=== PATIENT | female | born 1945 | race Caucasian/White ===

== ENCOUNTER 2016-05-11 11:49 | Emergency (ER) | payer MEDICARE, OTHER ==
[~2016-05-11] VITALS: Ht 167.6 cm; Wt 60.0 kg
[2016-05-11] MEDS ORDERED: morphine 4 MG/ML VIAL IV STA (12:08)
[2016-05-11] MEDS ORDERED: ONDANSETRON 4 MG INJ IV STA (12:08)
[2016-05-11 12:09] VITALS: Ht 167.6 cm; Wt 60.0 kg
--- NOTE | 2016-05-11 12:44 | RADRPT ---
PROCEDURE: XR Chest. CLINICAL INDICATION: Chest pain. TECHNIQUE: Single frontal view of the chest was obtained COMPARISON: No. FINDINGS: There are atherosclerotic calcifications in the aortic arch. There are degenerative osteophytes in the thoracic spine. The soft tissues are generous. The heart, pulmonary vasculature, lung hart an d pleural spaces are normal. IMPRESSION: 1. Atherosclerosis of the aortic arch. 2. Spondylosis of the thoracic spine. 3. No evidence of active cardiopulmonary disease. RPTAT:AAJJ Physician Jasmyne Date Time Electronically viewed and signed by Hardik Pacheco Physician on 05/11/2016 12:44 SULLY/
[2016-05-11 13:13] LABS: BASOPHILS % 0.5 % (0.0-2.0); EOSINOPHILS # 0.2 10^3/ul (0.0-0.5); HEMATOCRIT 37.8 % (37.0-47.0); HEMOGLOBIN 12.9 g/dl (12.0-16.0); LYMPHOCYTES # 2.4 10^3/ul (0.8-2.9); LYMPHOCYTES % 30.7 % (15.0-51.0); MEAN CORPUSCULAR HEMOGLOBIN 30.2 pg (29.0-33.0); MEAN CORPUSCULAR HGB CONC 34.1 g/dl (32.0-37.0); MEAN CORPUSCULAR VOLUME 88.7 fl (82.0-101.0); MEAN PLATELET VOLUME 11.6 fl (7.4-10.4); MONOCYTE # 0.5 10^3/ul (0.3-0.9); MONOCYTES % 6.8 % (0.0-11.0); NEUTROPHIL # 4.6 10^3/ul (1.6-7.5); PLATELET COUNT 196 10^3/UL (140-440); RED BLOOD COUNT 4.26 10^6/ul (4.20-5.40); RED CELL DISTRIBUTION WIDTH 13.3 % (11.5-14.5); UNCORRECTED WBC 7.8 10^3/ul (4.8-10.8); WHITE BLOOD COUNT 7.8 10^3/ul (4.8-10.8)
[2016-05-11 13:18] LABS: CONDITION 1
[2016-05-11 13:27] LABS: PARTIAL THROMBOPLASTIN TIME 24.7 Sec (25.0-35.0); PROTIME 13.2 Sec (12.2-14.2)
[2016-05-11 13:28] LABS: CHLORIDE 107 mmol/L (97-110); POTASSIUM 4.1 mmol/L (3.5-5.1); SODIUM 142 mmol/L (135-144)
[2016-05-11 13:30] LABS: ANION GAP 19 (8-16); ASPARTATE AMINO TRANSFERASE 17 IU/L (15-46); BILIRUBIN,INDIRECT 1.2 mg/dl (0-1.1); BILIRUBIN,TOTAL 1.2 mg/dl (0.2-1.3); CARBON DIOXIDE 20 mmol/L (21-31); CREATININE 0.81 mg/dl (0.44-1.00)
[2016-05-11 13:31] LABS: ALANINE AMINOTRANSFERASE 20 IU/L (13-69); ALBUMIN/GLOBULIN RATIO 1.33; ALKALINE PHOSPHATASE 159 IU/L (42-121); BLOOD UREA NITROGEN 16 mg/dl (7-20); CALCIUM 10.3 mg/dl (8.4-10.2); CREATINE KINASE 48 IU/L (23-200); GLUCOSE 95 mg/dl (70-220)
[2016-05-11 13:40] LABS: CK-MB 0.66 ng/ml (0.0-2.4)
[2016-05-11 13:44] LABS: TROPONIN-I < 0.012 ng/ml (0.00-0.12)
--- NOTE | 2016-05-11 13:44 | RADRPT ---
PROCEDURE: CT Chest without contrast. CLINICAL INDICATION: Severe left rib pain after ground level fall yesterday. TECHNIQUE: CT scan of the chest without contrast was performed on a multidetector high-resolution CT scanner. Coronal and sagittal reformatted images were obtained from the axial source images. The total exam CTDI equals 8.6 mGy and the total exam DLP equals 338.6 mGy-cm. One or more of the following dose reduction techniques were used: - Automated exposure control. - Adjustment of the mA and/or kV according to patient size. Use of iterative reconstruction technique. COMPARISON: Chest x-ray 05/11/2016. FINDINGS: There is a contusion over the The lungs are clear. No focal opacification, effusion, pneumothorax, edema, or nodules are seen. There is no pulmonary infiltrate. No mass lesion to suggest neoplasm i s identified. The central tracheobronchial tree is clear. The mediastinum is unremarkable without evidence for mass or lymphadenopathy. The vascular structur es of the mediastinum are normal in course and caliber. Atherosclerotic calcifications are present in the aortic arch. The heart size is normal without evidence for pericardial thickening or effusio n. The axillary regions, subpectoral regions, and supraclavicular regions are all unremarkable. The em rrounding chest wall is unremarkable. Imaging obtained through the upper abdomen reveals no acute a bnormality The surrounding osseous structures are remarkable for mild degenerative changes of the t horacic and upper lumbar spine. No osteolytic or osteoblastic lesion is detected. The liver is mildly enlarged. The spleen is unremarkable. No hepatic laceration or free intraperit linares fluid is identified. There is prominence of the upper pole calyces in the left kidney. The r ight kidney is unremarkable. The adrenal glands and pancreas are normal. There is no evidence 50 for a. The stomach is normal. The small bowel loops are normal. There is contrast in the colon. IMPRESSION: 1. There is no evidence of active cardiopulmonary disease in the chest. No rib fracture, pneumotho rax, hemothorax or pulmonary contusion is identified. 2. Mild hepatomegaly. 3. Otherwise, unremarkable CT scan of the chest. RPTAT:AAJJ Hardik Tara, Physician Date Time Electronically viewed and signed by Hardik Pacheco Physician on 05/11/2016 13:44 JM/
--- NOTE | 2016-05-11 14:09 | ERD ---
ER Documentation Chief Complaint Date/Time DATE: 05/11/16 TIME: 14:00 Chief Complaint BIB [facility] FOR EVAL OF RT RIB PAIN. S/P FALL LAST NIGHT. HPI This is a 70-year-old female with a known history of Parkinson's disease that was brought into the emergency department by EMS after she had a witnessed mechanical trip and fall yesterday at her assisted living facility. The patient states she normally ambulates with a walker but tripped and landed on her right side. She is complaining of pain on the bilateral rib cage most prominent on the right side. She states it hurts when she takes in a deep breath. She denies any pain of her lower extremities. She has had no fevers no shaking or chills. She states she did not hit her head or lose consciousness. She denies a headache or neck pain. She has no numbness or tingling of her upper or lower extremities. ROS All systems reviewed and are negative except as per history of present illness. Physical Exam Vitals Vital Signs Date Time Temp Pulse Resp B/P Pulse Ox O2 Delivery O2 Flow Rate FiO2 05/11/16 12:09 97.9 61 18 144/95 99 Physical Exam Constitutional:Well-developed. Well-nourished. HEENT:Normocephalic. Atraumatic.Pupils were equal round reactive to light. Moist mucous membranes.No tonsillar exudates. No nasal septal hematoma. No hemotympanum Neck: No nuchal rigidity. No lymphadenopathy. No posterior cervical spine tenderness or step-offs. Respiratory: Not using accessory muscles of respiration.Lungs were clear to auscultation bilaterally. No rhonchi. No rales. No wheezing. Cardiovascular: Regular rate regular rhythm.No murmurs. No rubs were appreciated.S1, S2 normal. Distal pulses are palpable 2+ bilaterally. Chest tenderness over the lateral right rib cage with no crepitus no ecchymosis no flail chest peer GI: Abdomen was soft. Nontender. Non Distended. No pulsatile abdominal masses or bruits. No rebound. No guarding. Bowel sounds were present and normal. No flank ecchymosis. No periumbilical ecchymosis Muscle skeletal: Full range of motion of both the upper and lower extremities bilaterally.Normal muscle tone.No assymetrical calf tenderness or swelling. Skin: No petechia, no purpura. No lesions on the palms or the soles of the feet. No maculopapular rash. NEURO: Patient was alert, awake, orientated x3.No facial droop. Gait not observed as patient stated she could not ambulate. Speech had regular rate and rhythm. Resting tremor of the left upper extreme Result Diagram: 05/11/16 1300 05/11/16 1300 Results 24 hrs Laboratory Tests Test 05/11/16 13:00 Activated Partial Thromboplast Time 24.7Sec Alanine Aminotransferase (ALT/SGPT) 20IU/L Albumin 4.0g/dl Albumin/Globulin Ratio 1.33 Alkaline Phosphatase 159IU/L Anion Gap 19 Aspartate Amino Transf (AST/SGOT) 17IU/L Basophils # 0.010^3/ul Basophils % 0.5% Blood Morphology Comment Blood Urea Nitrogen 16mg/dl Calcium Level 10.3mg/dl Carbon Dioxide Level 20mmol/L Chloride Level 107mmol/L Creatine Kinase 48IU/L Creatine Kinase Index 1.4 Creatinine 0.81mg/dl Creatinine Kinase MB (Mass) 0.66ng/ml Direct Bilirubin 0.00mg/dl Eosinophils # 0.210^3/ul Eosinophils % 3.0% Globulin 3.00g/dl Glucose Level 95mg/dl Hematocrit 37.8% Hemoglobin 12.9g/dl INR International Normalized Ratio 1.00 Indirect Bilirubin 1.2mg/dl Lymphocytes # 2.410^3/ul Lymphocytes % 30.7% Mean Corpuscular Hemoglobin 30.2pg Mean Corpuscular Hemoglobin Concent 34.1g/dl Mean Corpuscular Volume 88.7fl Mean Platelet Volume 11.6fl Monocytes # 0.510^3/ul Monocytes % 6.8% Neutrophils # 4.610^3/ul Neutrophils % 59.0% Nucleated Red Blood Cells # 0.010^3/ul Nucleated Red Blood Cells % 0.0/100WBC Platelet Count 65716^3/UL Potassium Level 4.1mmol/L Prothrombin Time 13.2Sec Prothrombin Time Ratio 1.0 Red Blood Count 4.2610^6/ul Red Cell Distribution Width 13.3% Sodium Level 142mmol/L Total Bilirubin 1.2mg/dl Total Protein 7.0g/dl Troponin I < 0.012ng/ml White Blood Count 7.810^3/ul Current Medications Medications (Trade) Dose Ordered Sig/Roger Route PRN Reason Start Time Stop Time Status Last Admin Dose Admin Morphine Sulfate (morphine) 4 mg ONCE STAT IV 05/11/16 12:08 05/11/16 12:10 DC 05/11/16 13:31 Ondansetron HCl (Zofran Inj) 4 mg ONCE STAT IV 05/11/16 12:08 05/11/16 12:10 DC 05/11/16 13:31 Procedures/MDM This patient presented to the emergency department after she had a mechanical fall at her assisted living facility. She was complaining of rib pain therefore I obtained a chest radiograph and there is no evidence of a rib fracture pneumothorax. However given that the patient continued to have a significant amount of rib pain I did feel is necessary to obtain a CT scan for further evaluation and this also confirmed no evidence of pneumothorax or rib fracture. Ancillary laboratory work indicated there is no evidence of sepsis, anemia, myocardial ischemia and the patient had a mild elevation in her calcium but was asymptomatic and therefore I did not feel required emergent treatment. The patient was given intravenous morphine and Zofran for analgesic control. Her pain had resolved. She felt comfortable being discharged back to her nursing facility and an ambulance was arranged in order to take the patient back given that she is gravely disabled. 12 Lead EKG tracing ordered and reviewed by myself showed: Normal sinus rhythm of 68 bpm and no arrhythmia. DE interval normal. QRS duration normal. No ST segment elevation No ST segment depression. No changes consistent with acute ischemia. The patient was discharged home in fair condition. They were instructed to return to the emergency department at any time if there was any worsening of their condition. The patient stated they would follow up with their PCP in the next 24-48 hours to initiate a suitable medication regimen under the care of their PCP as well as to allow their PCP to monitor any drug reactions. The patient was discharged home with prescriptions after they gave informed consent to the new medication. They were also fully informed by myself on the adverse effects and adverse drug interactions in order to provide adequate safeguards to prevent possible adverse reactions to medications. Departure Diagnosis: Primary Impression: Rib pain Condition: Fair BRAD ISLAS May 11, 2016 14:09
== END 2016-05-11 13:58 | disposition home or self-care (01) ==
LOC: E/R 11:49
DX: S29.001A Unspecified injury of muscle and tendon of front wall of thorax, initial encounter (principal); G20 Parkinson's disease; R40.2142 Coma scale, eyes open, spontaneous, at arrival to emergency department; R40.2252 Coma scale, best verbal response, oriented, at arrival to emergency department; R40.2362 Coma scale, best motor response, obeys commands, at arrival to emergency department; R07.81 Pleurodynia; W01.0XXA Fall on same level from slipping, tripping and stumbling without subsequent striking against object, initial encounter; Y92.89 Other specified places as the place of occurrence of the external cause
CPT/HCPCS: 71010; 71250; 80053; 82550; 82553; 84484; 85025; 85610; 85730; 93005; 96374; 96375; 99285; J2270; J2405